=== PATIENT | male | born 1960 | race Caucasian/White ===

== ENCOUNTER 2021-11-10 13:55 | Emergency (ER) | payer OTHER ==
[2021-11-10 14:36] LABS: BASOPHIL 0.8 % (0-2); HCT 51.6 % (42.0-52.0); HGB 17.9 g/dl (13.2-18.0); LYMPHOCYTE 18.8 % (15-48); MCH 31.9 pg (25.0-31.0); MCHC 34.7 g/dL (32.0-36.0); MONOCYTE 9.6 % (0-12); NEUTROPHIL 68.5 % (41-80); NRBC 0; PLT 177 K/uL (150-400); RBC 5.61 M/uL (4.70-6.00); RDW 12.4 % (11.5-14.0); WBC 7.6 K/uL (4.0-10.5)
[2021-11-10 14:38] LABS: ALBUMIN 3.9 g/dL (3.4-5.0); BUN/CREAT RATIO (CALC) 18.9 RATIO; CREATININE 1.06 mg/dL (0.67-1.17); GLOBULIN (CALCULATION) 3.9 g/dL; INR 1.11 (0.9-1.2); POTASSIUM 4.4 mmol/L (3.5-5.1); PROTHROMBIN TIME 13.7 SECONDS (11.8-13.4); PTT 29.4 SECONDS (24.4-34.7); TOTAL PROTEIN 7.8 g/dL (6.4-8.2)
[2021-11-10 14:52] LABS: CKMB 1.6 ng/mL (0.0-3.6)
== END 2021-11-10 21:15 | disposition other institution (70) ==
LOC: FER 13:55
PROVIDERS: Emergency Medicine
DX: I63.81 Other cerebral infarction due to occlusion or stenosis of small artery (principal); J18.9 Pneumonia, unspecified organism; I10 Essential (primary) hypertension; Z20.822 Contact with and (suspected) exposure to COVID-19; Z28.310 Unvaccinated for COVID-19
CPT/HCPCS: 36415; 70450; 70551; 71045; 80053; 80061; 82550; 82553; 83874; 84484; 85025; 85610; 85730; 93005; G0480; J0456; J0696; J7030; J7050; U0002

== ENCOUNTER 2022-01-06 00:07 | Inpatient (IN) | payer OTHER ==
[~2022-01-06] VITALS: Ht 185.4 cm; Wt 84.9 kg
[2022-01-06 01:26] LABS: BASOPHIL 0.3 % (0-2); EOSINOPHIL 0.3 % (0-5); LYMPHOCYTE 7.1 % (15-48); MCH 31.4 pg (25.0-31.0); MCHC 34.9 g/dL (32.0-36.0); MONOCYTE 16.1 % (0-12); MPV 11.8 fL (6.0-9.5); NRBC 0; PLT 133 K/uL (150-400); RBC 4.78 M/uL (4.70-6.00); RDW 11.9 % (11.5-14.0); WBC 6.1 K/uL (4.0-10.5)
[2022-01-06 01:31] LABS: INR 1.92 (0.9-1.2); PROTHROMBIN TIME 21.3 SECONDS (11.9-13.9)
[2022-01-06 01:56] LABS: INFLUENZA A NAA NEGATIVE (NEGATIVE)
[2022-01-06 02:04] LABS: BILIRUBIN NEGATIVE (NEGATIVE); BLOOD 2+ Ery/uL (NEGATIVE); CLARITY CLEAR (CLEAR); COLOR YELLOW (YELLOW); GLUCOSE (U) NORMAL (NORMAL); LEUKOCYTES NEGATIVE Leu/uL (NEGATIVE); NITRITE NEGATIVE (NEGATIVE); PROTEIN TRACE (LOW) mg/dL (NEGATIVE); pH 6.5 (5.0-9.0)
[2022-01-06 02:05] LABS: CORONAVIRUS 2019 SARS-COV-2 POSITIVE (NEGATIVE)
[2022-01-06 02:06] LABS: ALBUMIN 3.7 g/dL (3.4-5.0); ALKALINE PHOSHATASE 129 U/L (46-116); ALT 55 U/L (16-63); AST 43 U/L (15-37); BILIRUBIN - TOTAL 0.5 mg/dL (0.2-1.0); BUN 21 mg/dL (7-18); CHLORIDE 102 mmol/L (98-107); CO2 (BICARBONATE) 27 mmol/L (21-32); CREATININE 1.31 mg/dL (0.67-1.17); GLOBULIN (CALCULATION) 3.4 g/dL; GLUCOSE 106 mg/dL (74-106); LIPASE 123 U/L (73-393); POTASSIUM 3.9 mmol/L (3.5-5.1); TOTAL PROTEIN 7.1 g/dL (6.4-8.2)
[2022-01-06 02:07] LABS: ACETAMINOPHEN (TYLENOL) < 2.0 ug/mL (10.0-30.0)
[2022-01-06 02:10] LABS: AMPHETAMINES NEGATIVE (NEGATIVE); BARBITURATES NEGATIVE (NEGATIVE); ECSTASY (MDMA) NEGATIVE (NEGATIVE); MARIJUANA (THC) NEGATIVE (NEGATIVE); METHADONE NEGATIVE (NEGATIVE); OPIATES NEGATIVE (NEGATIVE); OXYCODONE NEGATIVE (NEGATIVE)
[2022-01-06] MEDS ORDERED: VITAMIN B-121000 MC1 PO (16:12)
[2022-01-06] MEDS ORDERED: TOPROL XL 25MG25 MG PO (16:13)
[2022-01-06] MEDS ORDERED: PRINIVIL20 MG PO (16:13)
[2022-01-06] MEDS ORDERED: PROTONIX 40MG T40 MG PO (16:13)
[2022-01-06] MEDS ORDERED: CRESTOR20 MG PO (16:14)
[2022-01-06] MEDS ORDERED: XARELTO10 MG PO (16:14)
[2022-01-06] MEDS ORDERED: B-1100 MG PO (16:15)
[2022-01-07 07:01] LABS: BASOPHIL 0.3 % (0-2); EOSINOPHIL 0.1 % (0-5); HCT 41.7 % (42.0-52.0); HGB 14.3 g/dl (13.2-18.0); MCH 31.2 pg (25.0-31.0); MCHC 34.3 g/dL (32.0-36.0); MCV 90.8 fL (78.0-100.0); MONOCYTE 14.5 % (0-12); MPV 11.6 fL (6.0-9.5); NEUTROPHIL 66.8 % (41-80); NRBC 0; PLT 128 K/uL (150-400); RBC 4.59 M/uL (4.70-6.00); RDW 11.9 % (11.5-14.0); WBC 6.9 K/uL (4.0-10.5)
[2022-01-07 08:33] LABS: CREATININE 1.02 mg/dL (0.67-1.17); POTASSIUM 4.1 mmol/L (3.5-5.1); TOTAL PROTEIN 6.1 g/dL (6.4-8.2)
[2022-01-07 08:34] LABS: ALBUMIN 3.4 g/dL (3.4-5.0); BILIRUBIN - TOTAL 0.6 mg/dL (0.2-1.0); GLOBULIN (CALCULATION) 2.7 g/dL
== END 2022-01-07 16:24 | disposition home or self-care (01) | DRG 177 ==
LOC: FER 00:07 → FMS 10:34 → FER 10:34 → FMS 11:50
PROVIDERS: Internal Medicine; Nurse Practitioner; ADMIT Allergy & Immunology Allergy
PROC: XW033E5 Introduction of Remdesivir Anti-infective into Peripheral Vein, Percutaneous Approach, New Technology Group 5 (ICD-10-PCS; principal; 2022-01-06)
PROC: 3E0333Z Introduction of Anti-inflammatory into Peripheral Vein, Percutaneous Approach (ICD-10-PCS; 2022-01-06)
PROC: 8E0ZXY6 Isolation (ICD-10-PCS; 2022-01-06)
DX: U07.1 COVID-19 (principal); G93.41 Metabolic encephalopathy; G45.9 Transient cerebral ischemic attack, unspecified; N17.9 Acute kidney failure, unspecified; I69.351 Hemiplegia and hemiparesis following cerebral infarction affecting right dominant side; I10 Essential (primary) hypertension; I48.91 Unspecified atrial fibrillation; E78.5 Hyperlipidemia, unspecified; W19.XXXA Unspecified fall, initial encounter; I71.2 Thoracic aortic aneurysm, without rupture; F17.200 Nicotine dependence, unspecified, uncomplicated; I69.392 Facial weakness following cerebral infarction; Z79.01 Long term (current) use of anticoagulants; Z82.3 Family history of stroke; Z79.899 Other long term (current) drug therapy
CPT/HCPCS: 36415; 70450; 70551; 71250; 80053; 80305; 81001; 82140; 83605; 83690; 84145; 85025; 85610; 85730; 93005; 94010; 94762; 97162; 97165; G0480; J0360; J1100; J7030; U0002